=== PATIENT | female | born 1955 | race Caucasian/White ===

== ENCOUNTER 2016-09-06 15:06 | Emergency (ER) | payer MEDICAID ==
[2016-09-06] MEDS ORDERED: ONDANSETRON ODT 4 MG TAB ONE (16:28)
[2016-09-06] MEDS ORDERED: LIDOCAINE 2% VISC 15 ML UDC ONE (16:28)
[2016-09-06] MEDS ORDERED: ALU/MAG/SIM 30 ML UDC ONE (16:28)
== END 2016-09-06 17:56 | disposition home or self-care (01) ==
LOC: ER 15:06
DX: J45.909 Unspecified asthma, uncomplicated (principal); Z87.891 Personal history of nicotine dependence; K21.9 Gastro-esophageal reflux disease without esophagitis; F41.1 Generalized anxiety disorder
CPT/HCPCS: 36415; 71020; 80053; 81003; 82550; 84439; 84443; 84484; 85025; 85610; 85730; 93005